=== PATIENT | female | born 1930 | race Caucasian/White ===

== ENCOUNTER 2018-08-18 14:36 | Inpatient (IN) | payer MEDICARE, OTHER ==
[~2018-08-18] VITALS: Ht 154.2 cm; Wt 64.6 kg
[~2018-08-18 14:36] MED LIST: LISINOPRIL-HCT1 EACH PO; METHOCARBAMOL750 MG PO; NORCO 5-325 TA1 EACH PO; ZOFRAN ODT4 MG PO
--- OUTSIDE RECORDS SUMMARY | 2018-08-18 14:39 | XMS REPORT | Summary of Care ---
Author Author [facility] Address Unknown Phone Unavailable Encounter Encntr_alias([facility]) [id number] Date(s): 08/14/16 - 09/12/16 [facility] Final: Malignant neoplasm of unspecified ovary Discharge Disposition: Home or Self Care Attending Physician: Miguel Forman MD Vital Signs No data available for this section Problem List No data available for this section Allergies, Adverse Reactions, Alerts No data available for this section Medications No data available for this section Results No data available for this section Immunizations No data available for this section Procedures No data available for this section Social History No data available for this section Assessment and Plan No data available for this section
--- OUTSIDE RECORDS SUMMARY | 2018-08-18 14:39 | XMS REPORT | Summary of Care ---
Author Author [facility] Address Unknown Phone Unavailable Encounter Encntr_reyes([facility]) [id number] Date(s): 01/18/16 - 02/16/16 [facility] Discharge Disposition: Home or Self Care Attending [...]
--- OUTSIDE RECORDS SUMMARY | 2018-08-18 14:39 | XMS REPORT | Continuity of Care Document ---
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 [facility] MUSCLE WEAKNESS (GENERALIZED) Active [facility] STIFFNESS OF LEFT KNEE, NOT ELSEWHERE CL Active [facility] MALIGNANT NEOPLASM OF UNSPECIFIED OVARY Active [facility] DIFFICULTY IN WALKING, NOT ELSEWHERE CLA Active [facility] Medications Medication Details Route Status Patient Instructions Ordering Provider Order Date Source Allergies, Adverse Reactions, Alerts Substance Category Reaction Severity Reaction type Status Date Reported Comments Source Immunizations Immunization Date Given Site Status Last Updated Comments Source Results Order Name Results Value Reference Range Date Interpretation Comments Source Vital Signs Vital Sign Value Date Comments Source Encounters Location Location Details Encounter Type Encounter Number Reason For Visit Attending Provider ADM Date DC Date Status Source [facility] [id number] Miguel Forman 12/17/2015 01/16/2016 [facility] [id number] Miguel Forman 01/18/2016 02/17/2016 [facility] [id number] Miguel Forman 08/14/2016 09/13/2016 [facility] [id number] Miguel Forman 09/14/2016 10/14/2016 [facility] Procedures Procedure Code Date Perfomer Comments Source
--- OUTSIDE RECORDS SUMMARY | 2018-08-18 14:39 | XMS REPORT | Summary of Care ---
Author Author [facility] Address Unknown Phone Unavailable Encounter Encntr_alitawny([facility]) [id number] Date(s): 09/14/16 - 10/13/16 [facility] Final: Difficulty in walking, not elsewhere classified Discharge Disposition: Home or Self Care Attending [...]
--- OUTSIDE RECORDS SUMMARY | 2018-08-18 14:39 | XMS REPORT | Summary of Care ---
Author Author [facility] Address Unknown Phone Unavailable Encounter Encntr_reyes([facility]) [id number] Date(s): 12/17/15 - 01/15/16 [facility] Discharge Disposition: Home or Self Care Attending [...]
[2018-08-18] MEDS ORDERED: SODIUM CHLORIDE 0.9% 250ML 250 ML IV STA (15:41)
[2018-08-18] MEDS ORDERED: ONDANSETRON HCL INJ 2MG/ML 2ML 2 MG/ML VIAL IV NR ×2 (15:41→18:30)
[2018-08-18] MEDS ORDERED: DIATRIZOATE MEGL/DIATRIZOA SOD 30 ML BTL PO ONE (16:00)
[2018-08-18 16:09] LABS: BASOPHILS # (AUTO) 0.1 (0.0-0.1); BASOPHILS % 0.7 % (0.0-1.0); EOSINOPHILS # (AUTO) 0.1 (0.0-0.4); EOSINOPHILS % 1.2 % (0.0-6.0); HEMATOCRIT 32.6 % (34.2-44.1); HEMOGLOBIN 11.2 g/dL (12.0-16.0); LYMPHOCYTES # (AUTO) 1.9 (1.0-3.2); LYMPHOCYTES % 28.5 % (18.0-39.1); MEAN CORPUSCULAR HEMOGLOBIN 31.5 pg (28-32); MEAN CORPUSCULAR HGB CONC 34.4 g/dL (31-35); MEAN CORPUSCULAR VOLUME 91.8 fL (81-99); MONOCYTES # (AUTO) 0.6 (0.2-0.8); MONOCYTES % 9.1 % (4.4-11.3); NEUTROPHILS # (AUTO) 4.1 (2.1-6.9); NEUTROPHILS % 59.9 % (38.7-80.0); PLATELET COUNT 356 x10e3/uL (140-360); RED BLOOD COUNT 3.55 x10e6/uL (3.6-5.1); RED CELL DISTRIBUTION WIDTH 13.4 % (11.7-14.4)
[2018-08-18 16:22] LABS: ALBUMIN/GLOBULIN RATIO 1.5 (0.8-2.0); ANION GAP 11.9 mmol/L (8-16); CALCIUM 8.9 mg/dL (8.4-10.2); CREATININE, SERUM 0.94 mg/dL (0.57-1.11); MAGNESIUM 2.2 MG/DL (1.3-2.1); POTASSIUM 3.9 mmol/L (3.5-5.1)
[2018-08-18] MEDS ORDERED: SODIUM CHLORIDE 0.9% 500ML 500 ML IV ONE (18:30)
--- NOTE | 2018-08-18 18:35 | Diagnostic Imaging Report ---
EXAMINATION: CT of the abdomen and pelvis with contrast. TECHNIQUE: HelicalCT images of the abdomen and pelvis were performed from the lung bases to the lesser trochanters after the intravenous administration of 100 cc of [id number] and the oral administration of none. Coronal and sagittal reformatted images were obtained.Dose modulation, iterative reconstruction, and/or weight based adjustment of the mA/kV was utilized to reduce the radiation dose to as low as reasonably achievable. COMPARISON: None. CLINICAL HISTORY:stomach pain DISCUSSION: ABDOMEN/PELVIS: LOWER THORAX:Unremarkable. HEPATOBILIARY: No focal hepatic lesions. No intra-or extrahepatic biliary ductal dilation. The gallbladder is normal. SPLEEN: No splenomegaly. PANCREAS: No focal masses or ductal dilatation. ADRENALS: No adrenal nodules. KIDNEYS/URETERS: No hydronephrosis, stones, or solid mass lesions. PELVIC ORGANS/BLADDER: The bladder is normal. PERITONEUM/RETROPERITONEUM: No free air or fluid. LYMPH NODES: No intra-abdominal, retroperitoneal, pelvic or inguinal lymphadenopathy. VESSELS: The celiac trunk,superior and inferior mesenteric and bilateral renal arteries are patent The portal, superior mesenteric and splenic veins are patent. GI TRACT: Colonic diverticulosis. No inflammatory change. Appendix normal. BONES AND SOFT TISSUE: No bony destructive lesions. Extensive degenerative change. IMPRESSION: No acute CT finding. Colonic diverticulosis without inflammatory change. Signed by: Dr. Wero Pantoja M.D. on 08/18/2018 6:31 PM
--- NOTE | 2018-08-18 18:40 | NUR ---
VERBAL REPORT GIVEN TO DENZEL RODRIGUEZ.
[2018-08-18] MEDS ORDERED: IOPAMIDOL 370 MG/ML 200 ML INFUS..BTL INJ ONE (18:41)
[2018-08-18] MEDS ORDERED: SODIUM CHLORIDE 0.9% 50ML 50 ML ONE (18:41)
[2018-08-18 18:42] LABS: CLARITY,URINE CLEAR (CLEAR); COLOR,URINE YELLOW (YELLOW)
[2018-08-18 18:43] LABS: BACTERIA,URINE FEW /HPF; BILIRUBIN,URINE NEGATIVE (NEGATIVE); EPITHELIAL CELLS,URINE FEW /LPF; KETONES,URINE TRACE (NEGATIVE); LEUKOCYTE ESTERASE ,URINE NEGATIVE (NEGATIVE); NITRITE,URINE NEGATIVE (NEGATIVE); PROTEIN,URINE DIPSTICK NEGATIVE (NEGATIVE); RBC,URINE 0-5 /HPF (0-5); URINE UROBILINOGEN 0.2 mg/dL (0.2 - 1)
[2018-08-18] MEDS ORDERED: METRONIDAZOLE500 MG PO (18:52)
[2018-08-18] MEDS ORDERED: ONDANSETRON HCL4 MG PO (18:52)
[2018-08-18] MEDS ORDERED: TRIAMCINOLONE A15 G1 TOP (18:52)
[2018-08-18] MEDS ORDERED: LISINOPRIL20 MG PO (18:52)
[2018-08-18] MEDS ORDERED: ENALAPRILAT IV INJ 1.25 MG/ML VIAL IV NR (18:59)
[2018-08-18] MEDS ORDERED: ONDANSETRON HCL INJ 2MG/ML 2ML 2 MG/ML VIAL IV PRN (19:00)
[2018-08-18] MEDS ORDERED: ENALAPRILAT IV INJ 1.25 MG/ML VIAL ONE (19:10)
--- OUTSIDE RECORDS SUMMARY | 2018-08-18 19:11 | XMS REPORT ---
Author Author [facility] Address Unknown Phone Unavailable Care Team Providers Care Mechanical Oxidizer Name Role Phone Ann COMBS Unavailable Unavailable Problems This patient has no known problems. Allergies, Adverse Reactions, Alerts This patient has no known allergies or adverse reactions. Medications This patient has no known medications. Results Test Description Test Time Test Comments Text Results Atomic Results Result Comments CT ABDOMEN/PELVIS W 2018-08-18 18:20:00 [facility] [address] [address] Patient Name: SHAGUFTA TEE MR #: [id number] : 1930 Age/Sex: 88/F Req #: [id number] Adm Physician: Ordered by: CHI ROMANO [employer] Report #: [id number] Location: ER Room/Bed: Procedure: [id number] CT/CT ABDOMEN/PELVIS W Exam Date: 08/18/18 Exam Time: 1757 REPORT STATUS: Signed EXAMINATION: CT of the abdomen and pelvis with contra st. TECHNIQUE: HelicalCT images of the abdomen and pelvis were performed from the lung bases to the lesser trochanters after the intravenous administration of 100 cc of [id number] and the oral administration of none. Coronal and sagittal reformatted images were obtained.Dose modulation, iterative reconstruction, and/or weight based adjustment of the mA/kV was utilized to reduce the radiation dose to as low as reasonably achievable. COMPARISON: None. CLINICAL HISTORY:stomach pain DISCUSSION: ABDOMEN/PELVIS: LOWER THORAX:Unremarkable. HEPATOBILIARY: No focal hepatic lesions. No intra-or extrahepatic biliary ductal dilation. The gallbladder is normal. SPLEEN: No splenomegaly. PANCREAS: No focal masses or ductal dilatation. ADRENALS: No adrenal nodules. KIDNEYS/URETERS: No hydronephrosis, stones, or solid mass lesions. PELVIC ORGANS/BLADDER: The bladder is normal. PERITONEUM/RETROPERITONEUM: No free air or fluid. LYMPH NODES: No intra-abdominal, retroperitoneal, pelvic or inguinal lymphadenopathy. VESSELS: The celiac trunk,superior and inferior mesenteric and bilateral renal arteries are patent The portal, superior mesenteric and splenic veins are patent. GI TRACT: Colonic diverticulosis. No inflammatory change. Appendix normal. BONES AND SOFT TISSUE: No bony destructive lesions. Extensive degenerative change. IMPRESSION: No acute CT finding. Colonic diverticulosis without inflammatory change. Signed by: Dr. Noemi Mcadams M.D. on 08/18/2018 6:31 PM Dictated By: NOEMI MCADAMS MD 183 Transcribed By: ROHAN on 08/18/181830 COPY TO: CHI ROMANO NP
[2018-08-18] MEDS ORDERED: ZOLPIDEM TARTRATE 5 MG TAB PO PRN (19:15)
[2018-08-18] MEDS ORDERED: HYDRALAZINE HCL 20 MG/ML VIAL IV PRN (19:15)
[2018-08-18] MEDS ORDERED: MAGNESIUM HYDROXIDE 30 ML UDC PO PRN (19:15)
--- NOTE | 2018-08-18 20:14 | Pre Op History & Physical ---
CHIEF COMPLAINT: Abdominal pain, nausea and vomiting. HISTORY OF PRESENT ILLNESS: The patient is an 88-year-old woman. She has a history of an admission to [facility] two years ago with low sodium as well as nausea and vomiting. She had an upper endoscopy at that time that showed gastritis and esophagitis. She now complains of some abdominal pain for 4 to 5 days. She has nausea and one or two episodes of vomiting. She also has some constipation. She denies any fever. She went to an urgent care clinic and had a CT scan four days ago. The CT scan showed some diverticulitis. PAST SURGICAL HISTORY: Knee surgery. PAST MEDICAL HISTORY: 1. Gastritis and esophagitis as noted above. 2. Hypertension. 3. Diverticulosis. SOCIAL HISTORY: The patient is not a smoker. She is not a drinker. ALLERGIES: NO KNOWN DRUG ALLERGIES. FAMILY HISTORY: Noncontributory. REVIEW OF SYSTEMS: The patient is afebrile. Headache is normal. The neck is normal. The oropharynx is normal. PHYSICAL EXAMINATION: LYMPHATIC: Shows no submandibular, cervical, or supraclavicular adenopathy. NECK: Shows no JVD or thyromegaly. There is no nuchal rigidity. CARDIAC: Reveals regular rate and rhythm with a normal S1 and S2. There are no murmurs or rubs. LUNGS: Auscultation of lungs reveals clear breath sounds bilaterally. There is no wheezing. ABDOMEN: Soft. There is mild tenderness in the left lower quadrant. There is no rebound or guarding. EXTREMITIES: Show no leg edema or calf tenderness. LABORATORY DATA: The white blood cell count is 6.8 and hemoglobin is 11.2. The platelet count is 356. The sodium is 123 and the BUN to creatinine ratio is 8:0.94. The liver function tests are normal. IMPRESSION: 1. Hyponatremia. 2. Diverticulitis. 3. Hypertension. PLAN: 1. The patient will receive IV saline. 2. Check TSH and free T4. 3. Repeat sodium in the morning. 4. Antiemetics. 5. Continue antibiotics for prior diverticulitis. 6. Control blood pressure. MD VONNIE Hayes/DENI /[id number]
[2018-08-18] MEDS: CEFTRIAXONE SOD 1 GM/NS 50 ML 50 ML IV SCH (20:16)
[2018-08-18] MEDS: METRONIDAZOLE 500MG/NS 100ML 100 ML IV SCH (20:25)
[2018-08-18 22:12] VITALS: BP 157/70
[2018-08-18 22:30] VITALS: BP 157/70
--- NOTE | 2018-08-18 22:30 | NUR ---
RECEIVED PT FROM ER VIA STRETCHER, PT ABLE TO WALK FROM STRETCHER TO BED, ORIENTED TO ROOM, ADMISSION PAPERWORK DONE, IV INTACT, NO TELE, PT WALKS WITH CANE, SKIN INTACT, FAMILY AT BEDSIDE, NO DISTRESS NOTED, VS STABLE, CALL LIGHT IN REACH
[2018-08-18] MEDS: ENALAPRILAT IV INJ 1.25 MG/ML VIAL IV SCH (23:58)
[2018-08-19] VITALS (7 sets, daily range): BP systolic 121–177; BP diastolic 59–78
--- NOTE | 2018-08-19 | NUR ---
VS STABLE, CALL LIGHT IN REACH, NO DISTRESS NOTED
--- NOTE | 2018-08-19 04:00 | NUR ---
PT SLEEPING, VS STABLE, NO DISTRES NOTED, CALL LIGHT IN REACH, FAMILY AT BEDSIDE
[2018-08-19] MEDS: ENALAPRILAT IV INJ 1.25 MG/ML VIAL IV SCH ×3 (05:17→18:22)
[2018-08-19] MEDS ORDERED: SODIUM CHLORIDE 0.9% 500ML 500 ML ONE (05:59)
[2018-08-19] MEDS: METRONIDAZOLE 500MG/NS 100ML 100 ML IV SCH (06:00)
[2018-08-19 06:12] LABS: BASOPHILS # (AUTO) 0.1 (0.0-0.1); BASOPHILS % 0.9 % (0.0-1.0); EOSINOPHILS # (AUTO) 0.2 (0.0-0.4); EOSINOPHILS % 3.3 % (0.0-6.0); HEMATOCRIT 29.4 % (34.2-44.1); HEMOGLOBIN 9.9 g/dL (12.0-16.0); LYMPHOCYTES # (AUTO) 2.1 (1.0-3.2); LYMPHOCYTES % 31.5 % (18.0-39.1); MEAN CORPUSCULAR HEMOGLOBIN 30.9 pg (28-32); MEAN CORPUSCULAR HGB CONC 33.7 g/dL (31-35); MEAN CORPUSCULAR VOLUME 91.9 fL (81-99); MONOCYTES # (AUTO) 0.8 (0.2-0.8); MONOCYTES % 12.3 % (4.4-11.3); NEUTROPHILS # (AUTO) 3.4 (2.1-6.9); NEUTROPHILS % 51.1 % (38.7-80.0); PLATELET COUNT 299 x10e3/uL (140-360); RED CELL DISTRIBUTION WIDTH 13.6 % (11.7-14.4)
--- NOTE | 2018-08-19 06:23 | NUR ---
PT AWAKE, UP TO BATHROOM WITH ASSIST, CALL LIGHT IN REACH, VS STABLE, NO DISTRESS NOTED
[2018-08-19 06:55] LABS: ALANINE AMINOTRANSFERASE 18 IU/L (0-55); ALBUMIN 3.4 g/dL (3.5-5.0); ALBUMIN/GLOBULIN RATIO 1.5 (0.8-2.0); ALKALINE PHOSPHATASE 42 IU/L (40-150); ANION GAP 9.7 mmol/L (8-16); BLOOD UREA NITROGEN 8 mg/dL (7-26); BUN/CREATININE RATIO 10 (6-25); CALCIUM 8.3 mg/dL (8.4-10.2); CARBON DIOXIDE 24 mmol/L (22-29); CHLORIDE 98 mmol/L (98-107); CREATININE, SERUM 0.84 mg/dL (0.57-1.11); EST GLOMERULAR FILTRATION RATE > 60 ML/MIN (60-); GLUCOSE 85 mg/dL (74-118); POTASSIUM 3.7 mmol/L (3.5-5.1); SODIUM 128 mmol/L (136-145)
[2018-08-19] MEDS: FAMOTIDINE 20 MG/2 ML VIAL IV SCH ×2 (08:07→16:53)
--- NOTE | 2018-08-19 08:07 | NUR ---
Patient alert and responsive, assisted to the bathroom and back to bed, c/o nausea and medicated with Zofran PRN, MOM due to hard pallet stools this morning, will monitor.
--- NOTE | 2018-08-19 12:00 | NUR ---
Dr. Alonzo consulted for Diverticulitis and service called at this time and waiting for call back
[2018-08-19] MEDS: SODIUM CHLORIDE 0.9% 1000ML 1,000 ML IV SCH (14:00)
--- NOTE | 2018-08-19 15:32 | Progress Note ---
DATE: SUBJECTIVE: The patient feels better, but still has some nausea. She also has some diarrhea. OBJECTIVE: VITAL SIGNS: The patient is afebrile. The blood pressure is 153/68 and the pulse is 58. HEENT: No facial swelling or erythema. The nasal mucosa is normal. LYMPHATIC: No submandibular, cervical or supraclavicular adenopathy. CARDIAC: Regular rate and rhythm with a normal S1, S2. There are no murmurs or rubs. LUNGS: Auscultation of lungs shows clear breath sounds bilaterally. There is no wheezing. ABDOMEN: Soft, nontender. There is no rebound or guarding. EXTREMITIES: No leg edema or calf tenderness. There is no cyanosis or clubbing. SKIN: No rashes. NEUROLOGICAL: No focal abnormalities. LABORATORY DATA: Sodium is 128 and the BUN to creatinine ratio is 8:0.84. IMPRESSION: 1. Hyponatremia. 2. Diverticulitis. 3. Diarrhea. 4. Hypertension. 5. Nausea. PLAN: 1. Continue normal saline. 2. Repeat sodium tomorrow. 3. Continue antibiotics. 4. Continue antiemetics. 5. GI consultation. Deion Hughes MD LM/DENI /[id number]
--- NOTE | 2018-08-19 18:23 | NUR ---
No call back from consult Dr. Alonzo and has been called again at this time
--- NOTE | 2018-08-19 18:38 | NUR ---
Call back from Dr. Muir covering for Dr. Alonzo and aware of consult
--- NOTE | 2018-08-19 20:20 | NUR ---
Dr Cochran to see pt, no new orders
[2018-08-19] MEDS: CEFTRIAXONE SOD 1 GM/NS 50 ML 50 ML IV SCH (20:27)
[2018-08-20] VITALS: BP 156/68
[2018-08-20] MEDS: ENALAPRILAT IV INJ 1.25 MG/ML VIAL IV SCH ×3 (01:14→12:07)
[2018-08-20] MEDS: SODIUM CHLORIDE 0.9% 1000ML 1,000 ML IV SCH ×2 (01:30→11:21)
--- NOTE | 2018-08-20 03:39 | Consultation ---
DATE OF CONSULTATION: Gastroenterology Consultation REASON FOR CONSULTATION: Diverticulitis. HISTORY OF PRESENT ILLNESS: Ms. Payne is a very pleasant 88-year-old woman with below past medical history. She developed nausea, vomiting, and lower abdominal pain, which was mild and crampy. She also had some constipation. There was no bleeding. This was approximately over the past 4 to 5 days. She went to Urgent Care and CAT scan was significant for diverticulitis. Repeat scan here just shows diverticulosis. PAST MEDICAL HISTORY: 1. Gastritis, esophagitis. 2. Hypertension. 3. Diverticulosis. 4. History of hyponatremia. MEDICATIONS: Reviewed. Please see MAR medication reconciliation form. ALLERGIES: REVIEWED. SOCIAL HISTORY: No alcohol, tobacco, or illicit substances. She has good family support. PAST SURGICAL HISTORY: Includes knee surgery. FAMILY HISTORY: Negative for colorectal cancer. REVIEW OF SYSTEMS: A 12-system review is positive for that mentioned in HPI, otherwise unremarkable. PHYSICAL EXAMINATION: GENERAL: Pleasant, alert and oriented, in no acute distress. HEENT: Pupils are equal, round, and reactive to light. NECK: Supple. LUNGS: Clear. CARDIOVASCULAR: S1 and S2. ABDOMEN: Soft. She is minimally tender in the left lower quadrant with deep palpation. No rebound, guarding, or mass. EXTREMITIES: No clubbing, cyanosis, or edema. PSYCHIATRIC: Calm, cooperative. NEUROLOGIC: Alert. The electronic health records were reviewed for laboratory and radiologic studies as well as history. ASSESSMENT: 1. Acute diverticulitis, improving. 2. Nausea and vomiting, resolved. 3. Hyponatremia, resolved. PLAN: At the current time, she seems to be improving. She is tolerating diet. I had discussion with her and family at the bedside regarding followup in a few weeks to plan outpatient colonoscopy as a followup for this episode of diverticulitis. All questions were answered and I gave her my card. If she is otherwise well in the morning, I anticipate she may be discharged. Thank you very much for asking me to see Ms. Payne. Any questions or concerns, please do not hesitate to contact me. We will follow along with you. Tiffani Muir MD RLS/MODL /[id number]
[2018-08-20 04:00] VITALS: BP 152/65
[2018-08-20 08:15] VITALS: BP 167/88
[2018-08-20 08:43] LABS: ALANINE AMINOTRANSFERASE 20 IU/L (0-55); ALBUMIN 3.4 g/dL (3.5-5.0); ALBUMIN/GLOBULIN RATIO 1.5 (0.8-2.0); ALKALINE PHOSPHATASE 40 IU/L (40-150); BLOOD UREA NITROGEN 8 mg/dL (7-26); BUN/CREATININE RATIO 10 (6-25); CALCIUM 8.2 mg/dL (8.4-10.2); CARBON DIOXIDE 24 mmol/L (22-29); CHLORIDE 98 mmol/L (98-107); EST GLOMERULAR FILTRATION RATE > 60 ML/MIN (60-); GLUCOSE 90 mg/dL (74-118); SODIUM 127 mmol/L (136-145)
[2018-08-20 09:33] VITALS: BP 191/77
[2018-08-20] MEDS: FAMOTIDINE 20 MG/2 ML VIAL IV SCH (09:33)
[2018-08-20 12:00] VITALS: BP 163/71
--- NOTE | 2018-08-20 14:35 | NUR ---
Visit made by the Spiritual Care Department Pastoral Visitor, Sheila Charles. PV provided pastoral presence, prayer, hospitality, and supportive listening. Pastoral Visitor informed pt/family of the scope of [employer] and availability. ANGEL CASTRO Development Disability Specialist Spiritual Care Department O: [phone] Pager: [phone] ([phone] number calling from)
--- NOTE | 2018-08-20 14:50 | NUR ---
Removed IV at this time. Pressure dressing applied.
--- NOTE | 2018-08-20 15:18 | NUR ---
Patient discharged from facility to home. patient assisted out via wheelchair. Reviewed all discharge paperwork, follow up appts and no RX's needed at this time. No s/s of distress noted
--- NOTE | 2018-08-20 19:24 | Discharge Summary ---
DISCHARGE MEDICATIONS: 1. Lisinopril 20 mg p.o. b.i.d. 2. Zofran 4 mg p.o. q.8 h. p.r.n. 3. Kenalog ointment. 4. Ciprofloxacin 500 mg p.o. b.i.d. for 10 days. DISCHARGE DIAGNOSES: 1. Hyponatremia. 2. Diverticulitis. 3. Hypertension. 4. Nausea. CONSULTING PHYSICIAN: Dr. Muir of Gastroenterology. RADIOGRAPHIC DATA: CT scan of the abdomen and pelvis shows diverticulosis with no acute findings. HISTORY OF PRESENT ILLNESS: The patient is an 88-year-old woman. She has a history of an admission to the [facility] two years ago for low sodium as well as nausea and vomiting. She also had gastritis and esophagitis at that time. She was seen about four or five days ago in an Urgent Care for abdominal pain. A CT scan at that time showed some diverticulitis. The patient came to the ER complaining of worsening nausea and an episode of vomiting. Upon evaluation, she was found to have a low sodium of 123. HOSPITAL COURSE: The patient was admitted. She was given IV normal saline along with antiemetics. She also received continued IV antibiotics for her diverticulitis. Her sodium increased to 128 with this and she felt better. The patient was also seen in consultation by Gastroenterology. They felt that her diverticulitis was resolving and recommended completing her antibiotic therapy as an outpatient. They recommended arrangements for an outpatient appointment and outpatient colonoscopy after resolution of the acute event. DISPOSITION: The patient will be discharged home. She will complete her ciprofloxacin as an outpatient. She will follow up with Dr. Reyna in 1 week and will have a repeat set of electrolytes. The patient will also follow up with Dr. Muir of Gastroenterology. MD VONNIE Hayes/DENI /[id number]
== END 2018-08-20 15:18 | disposition home or self-care (01) | DRG 392 ==
LOC: ER 14:36 → ERHOLD 19:09 → MED/SURG 22:14 → OBSVTOIN 08-19 13:59
PROVIDERS: ADMIT Internal Medicine Critical Care Medicine; ATTEND Internal Medicine Critical Care Medicine
DX: K57.32 Diverticulitis of large intestine without perforation or abscess without bleeding (principal); E87.1 Hypo-osmolality and hyponatremia; I10 Essential (primary) hypertension; K29.70 Gastritis, unspecified, without bleeding; K20.9 Esophagitis, unspecified
CPT/HCPCS: 36415; 74177; 80053; 81001; 82150; 83605; 83690; 83735; 84443; 85025; 99284; G0378; J0696; J2405; J7030; J7040; J7050; Q9967

== ENCOUNTER → 2020-10-11 | Day surgery (SDC) | payer MEDICARE ==
[2020-10-07 11:33] LABS: BASOPHILS # (AUTO) 0.1 (0.0-0.1); BASOPHILS % 1.1 % (0.0-1.0); EOSINOPHILS # (AUTO) 0.3 (0.0-0.4); EOSINOPHILS % 3.8 % (0.0-6.0); HEMATOCRIT 29.6 % (34.2-44.1); HEMOGLOBIN 9.8 g/dL (12.0-16.0); LYMPHOCYTES # (AUTO) 1.8 (1.0-3.2); LYMPHOCYTES % 27.2 % (18.0-39.1); MEAN CORPUSCULAR HEMOGLOBIN 31.7 pg (28-32); MEAN CORPUSCULAR HGB CONC 33.1 g/dL (31-35); MEAN CORPUSCULAR VOLUME 95.8 fL (81-99); MONOCYTES # (AUTO) 0.8 (0.2-0.8); MONOCYTES % 11.4 % (4.4-11.3); NEUTROPHILS # (AUTO) 3.7 (2.1-6.9); NEUTROPHILS % 55.9 % (38.7-80.0); PLATELET COUNT 311 x10e3/uL (140-360); RED BLOOD COUNT 3.09 x10e6/uL (3.6-5.1); RED CELL DISTRIBUTION WIDTH 14.9 % (11.7-14.4)
[~2020-10-11] MED LIST changes: +CARVEDILOL12.5 MG PO; +FENTANYL CITRATE/PF 100MCG/2 ML INJ ONE; +GLUCAGON FOR INJ 1 MG VIAL ONE; +HYDROCHLOROTHIA25 MG PO; +IBUPROFEN200 MG PO; +LIDOCAINE HCL 2% LOCAL INJ 5 ML SDV VIAL INJ ONE; +LISINOPRIL20 MG PO; +METRONIDAZOLE500 MG PO; +ONDANSETRON HCL4 MG PO; +PROPOFOL IV EMULSION 10 MG/ML 20 ML VIAL ONE; +TRIAMCINOLONE A15 G1 TOP; +TUMS ULTRA400 MG PO
[2020-10-11 17:00] VITALS: BP 160/72
== END | disposition home or self-care (01) ==
LOC: OR 13:56
PROVIDERS: ATTEND Internal Medicine Gastroenterology
DX: K29.50 Unspecified chronic gastritis without bleeding (principal); K31.7 Polyp of stomach and duodenum; F64.9 Gender identity disorder, unspecified; K44.9 Diaphragmatic hernia without obstruction or gangrene; K22.10 Ulcer of esophagus without bleeding; K57.30 Diverticulosis of large intestine without perforation or abscess without bleeding; K64.8 Other hemorrhoids; I10 Essential (primary) hypertension; I44.4 Left anterior fascicular block; I45.10 Unspecified right bundle-branch block; Z01.810 Encounter for preprocedural cardiovascular examination; Z01.812 Encounter for preprocedural laboratory examination; Z20.822 Contact with and (suspected) exposure to COVID-19
CPT/HCPCS: 36415; 43239; 45378; 85025; 93005; J1610; J2001; J2704; J3010; U0002